=== PATIENT | male | born 2000 | race Caucasian/White ===

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

== ENCOUNTER 2021-06-04 17:56 | Emergency (ER) | payer OTHER ==
--- NOTE | 2021-06-04 19:25 | ER ---
Nurse's Notes [facility] Name: Hima Fried Age: 21 yrs Sex: Male : 2000 Arrival Date: 06/04/2021 Time: 17:58 Bed 19 Private MD: Diagnosis: Displaced fracture of shaft of fifth metacarpal bone, right hand, initial encounter for closed fracture;Nondisplaced fracture of neck of fourth metacarpal bone, right hand, initial encounter for open fracture Presentation: 06/04 18:34 Chief complaint: Patient states: Patient punched a wall - right hand deformity and iw swelling noted - c/o right hand pain. Coronavirus screen: Vaccine status: Patient reports receiving the 2nd dose of the covid vaccine. Ebola Screen: Patient negative for fever greater than or equal to 101.5 degrees Fahrenheit, and additional compatible Ebola Virus Disease symptoms Patient denies exposure to infectious person. Patient denies travel to an Ebola-affected area in the 21 days before illness onset. No symptoms or risks identified at this time. Initial Sepsis Screen: Does the patient meet any 2 criteria? No. Patient's initial sepsis screen is negative. Does the patient have a suspected source of infection? No. Patient's initial sepsis screen is negative. Risk Assessment: Do you want to hurt yourself or someone else? Patient reports desire/thoughts of hurting themselves or someone else. Provider notified. Onset of symptoms was June 04, 2021. 18:34 Method Of Arrival: Ambulatory iw 18:34 Acuity: ROBERTH 3 iw Triage Assessment: 18:36 Pain: Complains of pain in right hand Pain does not radiate. Pain currently is 8 out of iw 10 on a pain scale. at worst was 10 out of 10 on a pain scale. level that patient reports is acceptable is 3 out of 10 on a pain scale. Quality of pain is described as aching, sharp, Pain began suddenly, Is continuous, Alleviated by repositioning, cold application, Aggravated by increased activity, repositioning, weight bearing, Noted to be grimacing, Current management. EENT: No deficits noted. Neuro: No deficits noted. Musculoskeletal:. Musculoskeletal: right hand deformity, swelling and pain - patient punched a wall Tenderness Reports pain in right hand since Punched a wall prior to ER arrival, deformity, swelling and pain noted. Injury Description: Bruise Deformity swelling. Historical: - Allergies: 18:36 Iodine; iw - Immunization history:: Adult Immunizations up to date, Client reports receiving the 2nd dose of the Covid vaccine. - Social history:: Smoking status: Patient reports the use of cigarette tobacco products. Screenin:39 Abuse screen: Denies threats or abuse. Nutritional screening: No deficits noted. iw Tuberculosis screening: No symptoms or risk factors identified. Never had TB. Possible symptoms: None Risk factors: None. Fall Risk None identified. Assessment: 18:39 General: Appears uncomfortable, well developed, Behavior is calm, cooperative, Reports iw right hand pain after punching a wall, deformity and swelling noted. Pain: Complains of pain in right hand Pain does not radiate. Pain currently is 8 out of 10 on a pain scale. Quality of pain is described as burning, aching, sharp, throbbing, Pain began suddenly, Is continuous, Alleviated by cold application, Aggravated by increased activity, repositioning, weight bearing, Noted to be grimacing. Neuro: No deficits noted. Cardiovascular: No deficits noted. Respiratory: No deficits noted. GI: No deficits noted. : No deficits noted. EENT: No deficits noted. Derm: No deficits noted. Musculoskeletal: Swelling present in right hand Tenderness Reports pain in right hand since Punched a wall resulting in pain, swelling and deformity to right hand prior to ED arrival. Injury Description: Bruise Deformity Swelling. 18:48 Reassessment: Portable X-ray of right hand completed at bedside. iw 19:45 Reassessment: splint applied right hand/wrist as ordered, michelle. well; arm sling applied cc4 RUE; ice pack applied right hand. 20:05 Reassessment: Patient appears in no apparent distress at this time. No changes from cc4 previously documented assessment. Rx \T\ discharge instructions given, v/u. Vital Signs: 18:16 BP 116 / 69; Pulse 58; Resp 12; Temp 98.6; Pulse Ox 100% on R/A; Weight 77.11 kg; em1 Height 5 ft. 11 in. (180.34 cm); Pain 2/10; 18:39 BP 118 / 72; Pulse 68; Resp 18; Temp 98.6; Pulse Ox 99% on R/A; iw 20:05 BP 109 / 86; Pulse 70; Resp 20; Temp 98.3; Pulse Ox 100% on R/A; cc4 18:16 Body Mass Index 23.71 (77.11 kg, 180.34 cm) em1 ED Course: 17:58 Patient arrived in ED. as 18:10 Riki Mcdonnell PA is PHCP. cp 18:10 Cosmo Dao MD is Attending Physician. cp 18:33 Belinda Swanson, RN is Primary Nurse. iw 18:36 Triage completed. iw 18:39 Patient has correct armband on for positive identification. Bed in low position. iw 19:00 XRAY Hand RIGHT 3 View In Process Unspecified. EDMS 19:24 Gagandeep Plunkett MD is Referral Physician. cp 19:45 Splint/sling/ice applied as appropriate. cc4 19:51 Orthoglass splint: Ulnar gutter/Boxer splint applied on right forearm. Sling applied to ds4 right arm. 20:05 No provider procedures requiring assistance completed. cc4 20:05 Patient did not have IV access during this emergency room visit. cc4 Administered Medications: 18:50 Drug: Ibuprofen 800 mg Route: PO; iw 19:03 Follow up: Response: No adverse reaction iw 18:50 Drug: Tylenol 1000 mg Route: PO; iw 19:03 Follow up: Response: No adverse reaction iw Outcome: 19:25 Discharge ordered by MD. cp 20:05 Discharged to home ambulatory. cc4 20:05 Condition: good 20:05 Discharge instructions given to patient, Instructed on discharge instructions, follow up and referral plans. medication usage, Demonstrated understanding of instructions, follow-up care, medications. 20:32 Patient left the ED. cc4 Signatures: Dispatcher [employer] EDOR Keira Abreu as Belinda Swanson, RN RN Konstantin Abreu em1 Williams Naik ds4 Riki Mcdonnell PA PA cp Cooper, Christie, RN RN cc4 Corrections: (The following items were deleted from the chart) 20:25 18:36 Allergies: Aspirin; cc4 20:25 18:36 Allergies: Demerol; cc4 20:25 18:36 Allergies: Ibuprofen; cc4 20:25 18:36 Allergies: Unable to obtain; iw cc4 20:25 18:36 Allergies: Morphine; iw cc4 20:25 18:36 Allergies: Codeine; iw cc4 20:25 18:36 Allergies: Latex, Natural Rubber; iw cc4 20:25 18:36 Allergies: Sulfa (Sulfonamide Antibiotics); iw cc4 20: 18:36 Allergies: NKA; iw cc4 20: 18:36 Allergies: NKDA; iw cc4 20: 18:36 Allergies: Oxycodone; iw cc4 20: 18:36 Allergies: Tetanus Vaccines \T\ Toxoid; iw cc4 20: 18:36 Allergies: PENICILLINS; iw cc4
--- NOTE | 2021-06-04 19:25 | EDPHYS ---
Physician Documentation [facility] Name: Hima Fried Age: 21 yrs Sex: Male : 2000 Arrival Date: 06/04/2021 Time: 17:58 Bed 19 Private MD: ED Physician Cosmo Dao HPI: 06/04 18:25 This 21 yrs old Male presents to ER via Ambulatory with complaints of Hand cp Injury. 18:25 The patient or guardian reports deformity, injury, pain, swelling, tenderness. The cp complaints affect the mid shaft right fifth metacarpal. Context: The problem was sustained at home, resulted from using own fist to strike, a wall. Onset: The symptoms/episode began/occurred today. Associated signs and symptoms: Pertinent negatives: cyanosis distally, numbness distally. Severity of symptoms: in the emergency department the symptoms are unchanged, despite home interventions. Historical: - Allergies: 18:36 Iodine; iw - Immunization history:: Adult Immunizations up to date, Client reports receiving the 2nd dose of the Covid vaccine. - Social history:: Smoking status: Patient reports the use of cigarette tobacco products. ROS: 18:30 MS/extremity: Positive for injury or acute deformity, pain, swelling, tenderness, of cp the right hand, Negative for paresthesias. 18:30 Constitutional: Negative for body aches, chills, fever. cp 18:30 Neck: Negative for pain with movement, pain at rest, stiffness. 18:30 Respiratory: Negative for cough, shortness of breath. 18:30 Abdomen/GI: Negative for abdominal pain, nausea, vomiting, and diarrhea. 18:30 Back: Negative for pain at rest, pain with movement. 18:30 Neuro: Negative for altered mental status, headache, weakness. 18:30 All other systems are negative. Exam: 18:35 Constitutional: The patient appears in no acute distress, alert, awake, comfortable, cp well developed, well nourished. 18:35 Head/Face: Normocephalic, atraumatic. cp 18:35 Chest/axilla: Inspection: normal. 18:35 Cardiovascular: Rate: normal, Pulses: Pulses are 2+ in right radial artery. 18:35 Respiratory: the patient does not display signs of respiratory distress, Respirations: normal, no use of accessory muscles, no retractions. 18:35 Musculoskeletal/extremity: Extremities: grossly normal except: noted in the mid shaft of right fifth metacarpal of right hand: deformity, pain, swelling, tenderness, Perfusion: the extremity is normally perfused throughout, the right hand Sensation intact. overlying skin intact of right hand. Vital Signs: 18:16 BP 116 / 69; Pulse 58; Resp 12; Temp 98.6; Pulse Ox 100% on R/A; Weight 77.11 kg; em1 Height 5 ft. 11 in. (180.34 cm); Pain 2/10; 18:39 BP 118 / 72; Pulse 68; Resp 18; Temp 98.6; Pulse Ox 99% on R/A; iw 20:05 BP 109 / 86; Pulse 70; Resp 20; Temp 98.3; Pulse Ox 100% on R/A; cc4 18:16 Body Mass Index 23.71 (77.11 kg, 180.34 cm) em1 Procedures: 20:30 Splinting: Splint applied to right hand using Orthoglass splint, ulna gutter type. cp applied by tech. Examined by me, post splint application: neurovascular intact, Patient tolerated well. MDM: 18:18 Patient medically screened. cp 19:00 Differential diagnosis: dislocation, open fracture, closed fracture, contusion. cp 19:25 Data reviewed: vital signs, nurses notes, radiologic studies, plain films. cp 19:25 Test interpretation: by ED physician or midlevel provider: plain radiologic studies. cp Counseling: I had a detailed discussion with the patient and/or guardian regarding: the historical points, exam findings, and any diagnostic results supporting the discharge/admit diagnosis, radiology results. Response to treatment: the patient's symptoms have markedly improved after treatment, and as a result, I will discharge patient. ED course: VSS. Pain improved with meds, extremity splinted. Will discharge to home with recommendation to f/u with hand surgeon. 06/04 18:18 Order name: XRAY Hand RIGHT 3 View; Complete Time: 19:35 cp 06/04 19:23 Order name: Splint - Ulnar Gutter; Complete Time: 19:51 cp Administered Medications: 18:50 Drug: Ibuprofen 800 mg Route: PO; iw 19:03 Follow up: Response: No adverse reaction iw 18:50 Drug: Tylenol 1000 mg Route: PO; iw 19:03 Follow up: Response: No adverse reaction iw Disposition: 20:35 Chart complete. cp Disposition Summary: 06/04/21 19:25 Discharge Ordered Location: Home cp Problem: new cp Symptoms: have improved cp Condition: Stable cp Diagnosis - Displaced fracture of shaft of fifth metacarpal bone, right hand, initial encounter cp for closed fracture - Nondisplaced fracture of neck of fourth metacarpal bone, right hand, initial cp encounter for open fracture Followup: cp - With: Gagandeep Plunkett MD - When: 2 - 3 days - Reason: Recheck today's complaints Discharge Instructions: - Discharge Summary Sheet cp - Metacarpal Fracture cp Forms: - Medication Reconciliation Form cp - School release form ds4 - Work release form ds4 - Thank You Letter cp - Antibiotic Education cp - Prescription Opioid Use cp Prescriptions: - Naprosyn 500 mg Oral Tablet - take 1 tablet by ORAL route 2 times per day take with food; 20 tablet; Refills: cp 0, Product Selection Permitted Addendum: 06/06/2021 23:21 Co-signature as Attending Physician, Cosmo Dao MD I agree with the assessment and k dr plan of care. Signatures: Dispatcher [employer] EDMS Cosmo Dao MD MD kdr Belinda Swanson RN RN iw Riki Mcdonnell PA PA cp Corrections: (The following items were deleted from the chart) 06/04 20:25 18:36 Allergies: Aspirin; cc4 20:25 18:36 Allergies: Demerol; cc4 20:25 18:36 Allergies: Ibuprofen; cc4 20:25 18:36 Allergies: Unable to obtain; cc4 20:25 18:36 Allergies: Morphine; cc4 20:25 18:36 Allergies: Codeine; cc4 20:25 18:36 Allergies: Latex, Natural Rubber; cc4 20:25 18:36 Allergies: Sulfa (Sulfonamide Antibiotics); cc4 20:25 18:36 Allergies: NKA; cc4 20:25 18:36 Allergies: NKDA; cc4 20:25 18:36 Allergies: Oxycodone; cc4 20:25 18:36 Allergies: Tetanus Vaccines \T\ Toxoid; cc4 20:25 18:36 Allergies: PENICILLINS; iw cc4
--- NOTE | 2021-06-04 19:32 | RAD REPORT ---
EXAM DESCRIPTION: RAD - Hand Right 3 View - 06/04/2021 7:01 pm CLINICAL HISTORY: PAIN, blunt force trauma COMPARISON: None FINDINGS: Transverse fracture is present through the mid shaft fifth metacarpal with approximately 3 5 degrees ventral angulation deformity of the distal fracture fragment. No displacement. Fracture of the fourth metacarpal head is present with 20 degrees ventral angulation. No periosteal reaction. No other fracture changes identified. No foreign body or significant soft tissue abnormality. IMPRESSION: Right fourth and fifth metacarpal fractures as detailed.
[2021-06-04] MEDS ORDERED: ACETAMINOPHEN 500 MG TAB ONE (19:44)
[2021-06-04] MEDS ORDERED: IBUPROFEN 400 MG TAB ONE (19:45)
[2021-06-04 20:40] VITALS: BP 109/86; TEMP 98.3; O2SAT 100
== END 2021-06-04 20:32 | disposition home or self-care (01) ==
LOC: ER 17:56
PROC: 2W3CX1Z Immobilization of Right Lower Arm using Splint (ICD-10-PCS; principal; 2021-06-04)
DX: S62.326A Displaced fracture of shaft of fifth metacarpal bone, right hand, initial encounter for closed fracture (principal); S62.364 Nondisplaced fracture of neck of fourth metacarpal bone, right hand; W22.8XXA Striking against or struck by other objects, initial encounter; Y92.009 Unspecified place in unspecified non-institutional (private) residence as the place of occurrence of the external cause; Z72.0 Tobacco use; Z91.048 Other nonmedicinal substance allergy status
CPT/HCPCS: 99284